=== PATIENT | female | born 1975 | race Caucasian/White ===

== ENCOUNTER 2017-08-04 15:59 | Emergency (ER) | payer OTHER ==
[~2017-08-04] VITALS: Ht 162.5 cm; Wt 81.6 kg
[2017-08-04] MEDS ORDERED: MEDROL DOSEPAK4 MG PO (16:38)
[2017-08-04] MEDS ORDERED: KENALOG 0.1%80 GM T (16:38)
== END 2017-08-04 16:58 | disposition home or self-care (01) ==
LOC: ED 15:59
DX: L24.0 Irritant contact dermatitis due to detergents (principal); F17.200 Nicotine dependence, unspecified, uncomplicated

== ENCOUNTER → 2021-05-04 | Outpatient (CLI) | payer BC ==
[~2021-05-04] MED LIST: KENALOG 0.1%80 GM T; MEDROL DOSEPAK4 MG PO
== END | disposition home or self-care (01) ==
LOC: COVID19 15:37
PROVIDERS: ATTEND Internal Medicine
DX: U07.1 COVID-19 (principal)

== ENCOUNTER → 2021-07-31 | Outpatient (CLI) | payer BC | END | disposition home or self-care (01) | LOC: RAD 09:26 | PROVIDERS: ATTEND Family Medicine | DX: M47.816 Spondylosis without myelopathy or radiculopathy, lumbar region (principal); M48.061 Spinal stenosis, lumbar region without neurogenic claudication ==

== ENCOUNTER → 2023-08-13 | Outpatient (CLI) | payer OTHER ==
[2023-08-13 10:26] LABS: BILIRUBIN Negative (Negative); BLOOD Negative (Negative); CLARITY Clear (Clear); COLOR Yellow (Yellow); GLUCOSE 3+ (Negative); KETONE Negative (Negative); LEUKO ESTERASE Negative (Negative); NITRITE Negative (Negative); SPECIFIC GRAVITY >= 1.030 (1.001-1.030); UROBILINOGEN 0.2 E.U./dl (0.0-1.0)
[2023-08-13 10:28] LABS: BASO # 0.1 10*3/uL (0.0-0.1); BASO % 1.1 % (0.0-1.0); EOS # 0.3 10*3/uL (0.0-0.4); EOS % 4.6 % (1.0-4.0); HEMATOCRIT 39.2 % (37.0-47.0); LYMPH % 31.3 % (27.0-41.0); MEAN CELL VOLUME 84.7 fl (81.0-99.0); MEAN CORPUSCULAR HGB 27.4 pg (27.0-31.0); MEAN CORPUSCULAR HGB CONC 32.4 g/dl (33.0-37.0); MEAN PLATELET VOLUME 10.5 fl (9.6-12.3); MONO # 0.5 10*3/uL (0.1-1.0); MONO % 7.7 % (3.0-9.0); NEUT # 3.4 10*3/uL (2.3-7.9); PLATELET COUNT AUTOMATED 234 10*3/uL (130-400); RED BLOOD COUNT 4.63 10*6/uL (4.10-5.10); RED CELL DISTRI WIDTH 12.2 % (0-14.5); RETICULOCYTE % 1.61 % (0.50-2.50); WHITE BLOOD COUNT 6.3 10*3/uL (4.8-10.8)
[2023-08-13 10:51] LABS: BACTERIA TRACE
[2023-08-13 11:14] LABS: ALKALINE PHOSPHATASE 122 U/L (46-116); BUN 11 mg/dl (9-23); CHLORIDE 101 mmol/L (98-107); CHOLESTEROL 217 mg/dL (<200); GAMMA GLUTAMYL TRANSPEPTIDASE 19 U/L (0-73); LDL CHOLESTEROL 144 mg/dL (9-159); POTASSIUM 3.9 mmol/L (3.4-5.1); SGPT/ALT 12 U/L (5-49); T3 UPTAKE 31.6 % (22.4-36.7); THYROXINE (T4) TOTAL 8.7 ug/dl (4.5-10.9); TOTAL PROTEIN 7.2 gm/dL (6.0-8.0); TRIGLYCERIDES 154 mg/dl (<150)
[2023-08-13 11:27] LABS: VITAMIN D, 25-HYDROXY 15.9 ng/mL (30-100)
== END ==
LOC: LAB 09:30
PROVIDERS: ATTEND Family Medicine
DX: R79.89 Other specified abnormal findings of blood chemistry (principal); R53.83 Other fatigue; E78.5 Hyperlipidemia, unspecified; E10.9 Type 1 diabetes mellitus without complications; E55.9 Vitamin D deficiency, unspecified

== ENCOUNTER 2024-07-04 09:41 | Inpatient (IN) | payer OTHER, MEDICARE ==
[~2024-07-04] VITALS: Wt 77.1 kg
[2024-07-04 09:55] VITALS: BP 102/63
[2024-07-04] MEDS ORDERED: SODIUM CHLORIDE 0.9% 1,000 ML IV ONE ×4 (10:15→21:37)
[2024-07-04] MEDS ORDERED: Ondansetron Hydrochloride 4 MG/2 ML VIAL IV ONE (10:15)
[2024-07-04 10:47] LABS: HEMATOCRIT 45.6 % (37.0-47.0); MEAN CELL VOLUME 85.7 fl (81.0-99.0); MEAN CORPUSCULAR HGB 27.6 pg (27.0-31.0); MEAN CORPUSCULAR HGB CONC 32.2 g/dl (33.0-37.0); MEAN PLATELET VOLUME 10.1 fl (9.6-12.3); MONO % 9.1 % (3.0-9.0); PLATELET COUNT AUTOMATED 206 10*3/uL (130-400); RED BLOOD COUNT 5.32 10*6/uL (4.10-5.10); RED CELL DISTRI WIDTH 13.1 % (0-14.5); WHITE BLOOD COUNT 9.8 10*3/uL (4.8-10.8)
[2024-07-04 10:48] LABS: BASO # 0.1 10*3/uL (0.0-0.1); BASO % 0.5 % (0.0-1.0); MONO # 0.9 10*3/uL (0.1-1.0); NEUT # 8.4 10*3/uL (2.3-7.9)
[2024-07-04] MEDS ORDERED: ZESTRIL10 MG PO (10:53)
[2024-07-04] MEDS ORDERED: LIPITOR10 MG PO (10:53)
[2024-07-04] MEDS ORDERED: METFORMIN HYDR500 MG PO (10:53)
[2024-07-04] MEDS ORDERED: CITALOPRAM10 MG PO (10:54)
[2024-07-04] MEDS ORDERED: HUMULIN 70/30 703 M1 SQ (10:55)
[2024-07-04 11:00] LABS: VENOUS BLOOD GAS O2 SAT 65.3 % (60.0-85.0)
[2024-07-04 11:07] LABS: BUN 16 mg/dl (9-23); CHLORIDE 95 mmol/L (98-107); POTASSIUM 3.8 mmol/L (3.4-5.1)
[2024-07-04] MEDS ORDERED: INSULIN REGULAR IN 0.9 % NACL 100 ML IV SCH ×2 (12:00→13:05)
[2024-07-04] MEDS ORDERED: INSULIN REGULAR, HUMAN 1 UNIT/0.01 ML IV ONE (12:00)
[2024-07-04] MEDS ORDERED: SODIUM CHLORIDE 0.9% 1,000 ML IV SCH (12:00)
[2024-07-04 12:48] VITALS: BP 109/68
[2024-07-04] MEDS ORDERED: BISACODYL 5 MG TAB PO PRN (13:05)
[2024-07-04] MEDS ORDERED: Ondansetron Hydrochloride 4 MG/2 ML VIAL IV PRN (13:05)
[2024-07-04] MEDS ORDERED: TEMAZEPAM 15 MG CAP PO PRN (13:05)
[2024-07-04] MEDS ORDERED: Magnesium Hydroxide 30 ML UDC PO PRN (13:05)
[2024-07-04] MEDS ORDERED: ACETAMINOPHEN 650 MG SUPP R PRN (13:05)
[2024-07-04] MEDS ORDERED: Acetaminophen/Hydrocodone 5 MG/325 MG TABLET PO PRN (13:05)
[2024-07-04] MEDS ORDERED: MORPHINE Sulfate 2 MG/ML SYR IV PRN (13:05)
[2024-07-04] MEDS ORDERED: BISACODYL 10 MG SUPP R PRN (13:05)
[2024-07-04] MEDS ORDERED: ACETAMINOPHEN 325 MG TAB PO PRN (13:05)
[2024-07-04 14:32] LABS: BUN 16 mg/dl (9-23); CHLORIDE 105 mmol/L (98-107); POTASSIUM 3.4 mmol/L (3.4-5.1)
[2024-07-04] MEDS ORDERED: DEXTROSE 5% 1,000 ML IV SCH (16:10)
[2024-07-04 16:23] VITALS: BP 134/74
[2024-07-04 17:26] VITALS: BP 134/59
[2024-07-04 18:22] LABS: BUN 16 mg/dl (9-23); CHLORIDE 106 mmol/L (98-107); POTASSIUM 3.2 mmol/L (3.4-5.1)
[2024-07-04] MEDS ORDERED: Insulin Glargine, Recombinan 1 UNIT/0.01 ML SC ONE (19:15)
[2024-07-04 19:20] VITALS: BP 128/76
[2024-07-04] MEDS ORDERED: POTASSIUM CHLORIDE IN WATER 100 ML IV SCH (20:00)
[2024-07-04] MEDS ORDERED: Oseltamivir Phosphate 75 MG CAP PO SCH (22:00)
[2024-07-04 22:19] LABS: BUN 21 mg/dl (9-23); CHLORIDE 104 mmol/L (98-107); POTASSIUM 3.3 mmol/L (3.4-5.1)
[2024-07-04 22:30] VITALS: BP 132/78
[2024-07-05] MEDS ORDERED: DEXTROSE 10 % IN WATER 250 ML DEHP.FR.BG IV ONE (00:05)
[2024-07-05] MEDS ORDERED: WATER IV ONE (00:35)
[2024-07-05] MEDS ORDERED: DEXTROSE 10% IV ONE (00:35)
[2024-07-05] MEDS ORDERED: METFORMIN HYDR500 MG PO (00:43)
[2024-07-05 01:00] VITALS: BP 133/77
[2024-07-05] MEDS ORDERED: DEXTROSE 10 % IN WATER 250 ML IV PRN (01:50)
[2024-07-05 02:24] LABS: BUN 18 mg/dl (9-23); CHLORIDE 102 mmol/L (98-107); POTASSIUM 3.8 mmol/L (3.4-5.1)
[2024-07-05 04:00] VITALS: BP 141/74
[2024-07-05] MEDS ORDERED: [UNRECOGNIZED DRUG - OTHER] IV ONE (06:00)
[2024-07-05] MEDS ORDERED: POTASSIUM CHLORIDE IV ONE (06:00)
[2024-07-05] MEDS ORDERED: SODIUM CHLORIDE 0.9% 1,000 ML IV ONE (06:05)
[2024-07-05 06:26] VITALS: BP 16/87
[2024-07-05] MEDS ORDERED: POTASSIUM CHLORIDE IN WATER 100 ML IV ONE (06:57)
[2024-07-05] MEDS ORDERED: INSULIN LISPRO 1 UNIT/0.01 ML SQ SCH (07:30)
[2024-07-05 07:57] VITALS: BP 177/68
[2024-07-05 09:41] LABS: BASO % 0.2 % (0.0-1.0); HEMATOCRIT 37.7 % (37.0-47.0); MEAN CELL VOLUME 85.1 fl (81.0-99.0); MEAN CORPUSCULAR HGB 27.8 pg (27.0-31.0); MEAN CORPUSCULAR HGB CONC 32.6 g/dl (33.0-37.0); MEAN PLATELET VOLUME 9.9 fl (9.6-12.3); MONO # 0.5 10*3/uL (0.1-1.0); MONO % 5.7 % (3.0-9.0); NEUT # 7.3 10*3/uL (2.3-7.9); NEUT % 88.2 % (47.0-73.0); PLATELET COUNT AUTOMATED 147 10*3/uL (130-400); RED BLOOD COUNT 4.43 10*6/uL (4.10-5.10); RED CELL DISTRI WIDTH 13.2 % (0-14.5); WHITE BLOOD COUNT 8.3 10*3/uL (4.8-10.8)
[2024-07-05 09:58] LABS: ACT PARTIAL THROMBO TIME 34.6 SECONDS (20.0-32.1)
[2024-07-05] MEDS ORDERED: ATORVASTATIN CALCIUM 10 MG TAB PO SCH (10:00)
[2024-07-05] MEDS ORDERED: Enoxaparin Sodium 40 MG/0.4 ML SYR SC SCH (10:00)
[2024-07-05] MEDS ORDERED: CITALOPRAM 20 MG TAB PO SCH (10:00)
[2024-07-05] MEDS ORDERED: LISINOPRIL 10 MG TAB PO SCH (10:00)
[2024-07-05 10:18] LABS: ALKALINE PHOSPHATASE 74 U/L (46-116); BUN 14 mg/dl (9-23); CHLORIDE 100 mmol/L (98-107); CHOLESTEROL 136 mg/dL (<200); FREE T4 1.07 ng/dl (0.89-1.76); LDL CHOLESTEROL 90 mg/dL (9-159); POTASSIUM 3.6 mmol/L (3.4-5.1); SGPT/ALT 9 U/L (5-49); TOTAL PROTEIN 5.9 gm/dL (6.0-8.0); TRIGLYCERIDES 92 mg/dl (<150)
[2024-07-05 10:21] LABS: VITAMIN D, 25-HYDROXY 20.8 ng/mL (30-100)
[2024-07-05 13:01] LABS: BILIRUBIN Negative (Negative); BLOOD Negative (Negative); CLARITY Clear (Clear); COLOR Yellow (Yellow); GLUCOSE 3+ (Negative); KETONE 1+ (Negative); LEUKO ESTERASE Negative (Negative); NITRITE Negative (Negative); PH 5.5 (4.5-8.0); SPECIFIC GRAVITY >= 1.030 (1.001-1.030); UROBILINOGEN 0.2 E.U./dl (0.0-1.0)
[2024-07-05 13:28] LABS: WBC 0-2 wbc/hpf (0-5)
[2024-07-05] MEDS ORDERED: Tamiflu 75MG Capsule PO (16:29)
[2024-07-05] MEDS ORDERED: VENT7GM INH (16:29)
[2024-07-05] MEDS ORDERED: TAMIFLU 75MG CA75 MG PO (16:30)
== END 2024-07-05 18:30 | disposition home or self-care (01) | DRG 871 ==
LOC: ED 09:41 → EDHOLD 11:59
PROVIDERS: Emergency Medicine; Student in an Organized Health Care Education/Training Program; ADMIT Internal Medicine; ATTEND Internal Medicine
DX: A41.9 Sepsis, unspecified organism (principal); E11.10 Type 2 diabetes mellitus with ketoacidosis without coma; J96.01 Acute respiratory failure with hypoxia; J10.00 Influenza due to other identified influenza virus with unspecified type of pneumonia; E87.1 Hypo-osmolality and hyponatremia; R65.20 Severe sepsis without septic shock; E78.5 Hyperlipidemia, unspecified; Z20.822 Contact with and (suspected) exposure to COVID-19; F17.200 Nicotine dependence, unspecified, uncomplicated; I10 Essential (primary) hypertension; Z79.4 Long term (current) use of insulin; Z79.899 Other long term (current) drug therapy; Z79.01 Long term (current) use of anticoagulants; Z79.2 Long term (current) use of antibiotics

== ENCOUNTER → 2025-01-16 | Outpatient (CLI) | payer BC, MEDICARE ==
[~2025-01-16] MED LIST changes: +CITALOPRAM10 MG PO; +HUMULIN 70/30 703 M1 SQ; +LIPITOR10 MG PO; +METFORMIN HYDR500 MG PO; +TAMIFLU 75MG CA75 MG PO; +Tamiflu 75MG Capsule PO; +VENT7GM INH; +ZESTRIL10 MG PO
== END | disposition home or self-care (01) ==
LOC: CARD 07:03
PROVIDERS: ATTEND Internal Medicine Cardiovascular Disease
DX: R94.31 Abnormal electrocardiogram [ECG] [EKG] (principal); R60.0 Localized edema

== ENCOUNTER → 2025-01-22 | Outpatient (CLI) | payer BC, MEDICARE ==
[~2025-01-22] MED LIST changes: +HYDROCHLOROTH12.5 M2 PO; +Regadenoson 0.4 MG/5 ML SYR IV ONE; +Technetium Tc 99M Tetrofosmi 0.23 MG KIT IJ SCH
== END ==
LOC: CARD 00:15
PROVIDERS: ATTEND Internal Medicine Cardiovascular Disease
DX: R94.31 Abnormal electrocardiogram [ECG] [EKG] (principal)

== ENCOUNTER → 2025-04-03 | Outpatient (CLI) | payer BC, MEDICARE ==
[~2025-04-03] MED LIST changes: -Regadenoson 0.4 MG/5 ML SYR IV ONE; -Technetium Tc 99M Tetrofosmi 0.23 MG KIT IJ SCH
[2025-04-03 11:58] LABS: BASO # 0.1 10*3/uL (0.0-0.1); BASO % 1.5 % (0.0-1.0); EOS # 0.3 10*3/uL (0.0-0.4); EOS % 5.0 % (1.0-4.0); MEAN CELL VOLUME 84.8 fl (81.0-99.0); MEAN CORPUSCULAR HGB 27.3 pg (27.0-31.0); MEAN PLATELET VOLUME 9.8 fl (9.6-12.3); MONO # 0.4 10*3/uL (0.1-1.0); MONO % 7.7 % (3.0-9.0); NEUT # 3.1 10*3/uL (2.3-7.9); NEUT % 60.5 % (47.0-73.0); NUCLEATED RED BLOOD CELL 0.0 % (0.0-0.0); NUCLEATED RED BLOOD CELL 0.0 10*3/uL (0.0-0.0); PLATELET COUNT AUTOMATED 260 10*3/uL (130-400); RED CELL DISTRI WIDTH 13.6 % (0-14.5); RETICULOCYTE % 1.36 % (0.50-2.50)
[2025-04-03 12:35] LABS: BUN 20 mg/dl (9-23); GAMMA GLUTAMYL TRANSFERASE 14 U/L (0-38); LDL CHOLESTEROL 74 mg/dL (9-159); SGPT/ALT 20 U/L (5-49); T3 UPTAKE 26.8 % (22.4-36.7); THYROXINE (T4) TOTAL 7.9 ug/dl (4.5-10.9)
[2025-04-03 12:36] LABS: VITAMIN D, 25-HYDROXY 18.8 ng/mL (30-100)
== END | disposition home or self-care (01) ==
LOC: LAB 11:31
PROVIDERS: ATTEND Family Medicine
DX: R79.89 Other specified abnormal findings of blood chemistry (principal); E78.5 Hyperlipidemia, unspecified; R53.83 Other fatigue; E10.9 Type 1 diabetes mellitus without complications; E55.9 Vitamin D deficiency, unspecified